=== PATIENT | male | born 1995 | race African-American/Black ===

== ENCOUNTER 2017-12-02 01:51 | Emergency (ER) | payer SELFPAY ==
[~2017-12-02] VITALS: Ht 195.6 cm; Wt 115.0 kg
[2017-12-02 02:14] VITALS: BP 154/62; PULSE 82; RESP 18; TEMP 102.5; O2SAT 96
== END 2017-12-02 04:03 | disposition left against medical advice (07) ==
LOC: NED 01:51
DX: R05 Cough (principal)
CPT/HCPCS: 99281